=== PATIENT | male | born 1945 | race Caucasian/White ===

== ENCOUNTER 2020-01-01 10:40 | Emergency (ER) | payer MEDICARE ==
[~2020-01-01] VITALS: Ht 165.1 cm; Wt 63.5 kg
--- NOTE | 2020-01-01 10:40 | NUR ---
Patient BIBA BLS, transferred to bed 5. RN evaluating patient at bedside.
[2020-01-01 10:44] VITALS: BP 130/81
--- NOTE | 2020-01-01 10:49 | NUR ---
74 y/o male biba from home for suicidal ideation. Per ems pt was found by his son holding a knife to his chest stating he was going to kill himself. Pt states he was seen at [place] last week for SI. Denies SI/HI at this time. States he has been feeling increased depression the last few weeks. Pt awake and alert, calm and cooperative at this time. Pt placed in gown and all personal belongings removed from pt. VSS medhx: depression
--- NOTE | 2020-01-01 10:50 | NUR ---
Pt ambulated to restroom for collection of urine.
--- NOTE | 2020-01-01 10:56 | NUR ---
Dr. Steele is evaluating the patient at bedside.
--- NOTE | 2020-01-01 11:02 | NUR ---
Lab at bedside for blood draw
[2020-01-01 11:11] LABS: BASOPHILS # (AUTO) 0.1 K/uL (0.00-0.22); BASOPHILS % (AUTO) 1.2 % (0.0-2.0); EOSINOPHILS # (AUTO) 0.1 K/uL (0-0.4); EOSINOPHILS % (AUTO) 0.9 % (0.0-4.0); HEMATOCRIT 36.6 % (36-52); HEMOGLOBIN 12.6 g/dL (12.0-18.0); LYMPHOCYTES # (AUTO) 1.5 K/uL (2.0-11.5); MEAN CORPUSCULAR HEMOGLOBIN 34 pg (27-31); MEAN CORPUSCULAR HGB CONC 35 g/dL (33-37); MEAN CORPUSCULAR VOLUME 99.7 fL (80-94); MONOCYTES # (AUTO) 0.4 K/uL (0.8-1.0); MONOCYTES % (AUTO) 6.3 % (1.7-9.3); NEUTROPHILS # (AUTO) 4.9 K/uL (1.8-7.7); NEUTROPHILS % (AUTO) 70.6 % (42.2-75.2); PLATELET COUNT (AUTO) 248 K/uL (140-450); RED BLOOD CELL COUNT(AUTO) 3.67 MIL/uL (4.20-6.10); RED CELL DISTRIBUTION WIDTH 13.5 % (11.6-13.7)
--- NOTE | 2020-01-01 11:21 | NUR ---
Telepsychiatry consultation ordered as requested by Dr. Steele.
[2020-01-01 11:22] LABS: ALBUMIN 3.6 g/dL (3.4-5.0); ANION GAP 11.4 (8-16); ASPARTATE AMINOTRANSFERASE 20 U/L (15-37); CARBON DIOXIDE 26.1 mmol/L (21-32); CHLORIDE 103 mmol/L (98-107); GLUCOSE 134 mg/dL (74-106); POTASSIUM 3.5 mmol/L (3.5-5.1); SODIUM SERUM 137 mmol/L (136-145); TOTAL BILIRUBIN 0.8 mg/dL (0.0-1.0); UREA NITROGEN, BLOOD 15 mg/dL (7-18)
[2020-01-01 11:25] LABS: ACETAMINOPHEN < 0.5 ug/ml (10-30); SALICYLATE < 2.8 mg/dL (2.8-20.0)
--- NOTE | 2020-01-01 12:27 | NUR ---
Resting with eyes closed, visible rise and fall of the chest. x 2 side rails raised, bed locked and in lowest position. VSS, will continue to monitor
[2020-01-01 12:57] LABS: BARBITURATE, URINE NEGATIVE ng/ml (NEG <=200)
[2020-01-01 12:58] LABS: BENZODIAZEPINE, URINE POSITIVE ng/mL (NEG <=200); CANNABINOID, URINE NEGATIVE ng/mL (NEG <=50); COCAINE, URINE NEGATIVE ng/mL (NEG <=300); OPIATE, URINE POSITIVE ng/mL (NEG <=2000); PHENCYCLIDINE SCREEN,URINE POSITIVE ng/mL (NEG <=25)
--- NOTE | 2020-01-01 14:02 | NUR ---
Pt laying flat with eyes closed, arousable to voice. VSS, will continue to monitor
--- NOTE | 2020-01-01 14:40 | NUR ---
Covid swabs collected from pt and taken to lab
--- NOTE | 2020-01-01 15:24 | NUR ---
Dr Bush at bedside speaking with patient
--- NOTE | 2020-01-01 16:30 | NUR ---
Pt resting in bed positioned for comfort, no complaints at this time. x 2 side rails raised, bed locked and in lowest position. VSS
--- NOTE | 2020-01-01 17:45 | NUR ---
Pt sitting upright in bed eating dinner. VSS
--- NOTE | 2020-01-01 19:07 | NUR ---
Report given to MICHELLE Motley. Transfer of care at this time
--- NOTE | 2020-01-01 20:09 | NUR ---
PT APPEARS TO BE SLEEPING. VSS, R/R EQUAL, AND UNLABORED. SIDE RAIL X2, BED IN LOW POSITION, SUICIDE PRECAUTIONS IN PLACE. WILL CONTINUE TO MONITOR.
--- NOTE | 2020-01-01 20:59 | NUR ---
Packet faxed for placement S/W ER regarding insurance. S/W [place] and she will call back In meantime the following facilities were called [facility] s/w [place]-no beds available-on saturation [facility] s/w [place]- no beds available-they have patients in their ER
--- NOTE | 2020-01-01 21:38 | NUR ---
PT SITTING IN BED, RESTING QUIETLY. VSS, R/R EQUAL, AND UNLABORED. SUICIDE PRECAUTIONS IN PLACE. SIDE RAIL X2, WILL CONTINUE TO MONITOR.
--- NOTE | 2020-01-01 22:25 | NUR ---
SPOKE TO PT'S . SHE PROVIDED ALL OF PATIENT'S HOME MEDS. MED REQ COMPLETED.
--- NOTE | 2020-01-01 22:53 | NUR ---
SPOKE TO AMOL FROM [facility]. SHE REQUESTED INFORMATION ABOUT PT, AND FOR PT'S CHART, AND HOLD BE FAXED TO THE "BED FINDER" AT [phone]. MACIE [employer] FAXED REQUESTED DOCUMENTS TO FACILITY.
[2020-01-01] MEDS ORDERED: CARB1TAB37 PO (23:09)
[2020-01-01] MEDS ORDERED: NABU500T3 PO (23:09)
[2020-01-01] MEDS ORDERED: ATA25 PO (23:09)
[2020-01-01] MEDS ORDERED: LIP80 PO (23:09)
[2020-01-01] MEDS ORDERED: VENL150C1 PO (23:09)
[2020-01-01] MEDS ORDERED: TRAZ-343 PO (23:09)
[2020-01-01] MEDS ORDERED: MIRT15TA PO (23:09)
[2020-01-01] MEDS ORDERED: QUET25TA PO (23:09)
[2020-01-01] MEDS ORDERED: DONE10TA10 PO (23:09)
[2020-01-01] MEDS ORDERED: BUS5 PO (23:09)
[2020-01-01] MEDS ORDERED: MSCON15 PO (23:09)
[2020-01-01] MEDS ORDERED: GABA300C PO (23:09)
--- NOTE | 2020-01-01 23:33 | NUR ---
PT APPEARS TO BE SLEEPING IN BED. VSS, R/R EQUAL, AND UNLABORED. SUICIDE PRECAUTIONS IN PLACE. SIDE RAIL X2, BED IN LOW POSITION, WILL CONTINUE TO MONITOR.
--- NOTE | 2020-01-02 02:31 | NUR ---
PT LAYING QUIETLY IN BED. R/R EQUAL, AND UNLABORED. NO DISTRESS NOTED, OR VERBALIZED AT THIS TIME. VSS. SUICIDE PRECAUTIONS IN PLACE, SIDE RAIL X2, WILL CONTINUE TO MONITOR.
--- NOTE | 2020-01-02 03:09 | NUR ---
PT ASKING TO SPEAK TO . I EXPLAINED THAT HIS , LARRY IS PROBABLY SLEEPING RIGHT NOW BECAUSE IT'S 3 AM. PT STATED "OH OK, I'LL CALL HER IN A COUPLE HOURS, AFTER BREAKFAST." R/R EQUAL, AND UNLABORED. NO DISTRESS NOTED, OR VERBALIZED AT THIS TIME. WILL CONTINUE TO MONITOR.
--- NOTE | 2020-01-02 04:27 | NUR ---
PT RESTING QUIETLY IN BED. REQUESTED AND PROVIDED ADDITIONAL BLANKETS FOR WARMTH. VSS, R/R EQUAL, AND UNLABORED. SUICIDE PRECAUTIONS IN PLACE. SIDE RAIL X2, BED IN LOW POSITION, WILL CONTINUE TO MONITOR.
[2020-01-02 05:45] VITALS: BP 129/69
--- NOTE | 2020-01-02 05:45 | NUR ---
Patient to be transferred to [facility]. Is being transferred due to Placement. Receiving facility has accepting physician and available space. ER physician has signed transfer form. Patient or responsible republican has agreed to transfer and signed form. Patient belongings inventoried and will be sent with patient. Copy of nursing notes, lab reports, EKG, Physicians Orders and X-rays to be sent with patient. Report called to [facility] ER at receiving facility.
--- NOTE | 2020-01-02 05:53 | NUR ---
PT'S LARRY NOTIFIED OF PT'S DEPARTURE TO [facility]
== END 2020-01-02 05:53 | disposition short-term general hospital (02) ==
LOC: MED 10:40
DX: R45.851 Suicidal ideations (principal); F17.200 Nicotine dependence, unspecified, uncomplicated; F32.9 Major depressive disorder, single episode, unspecified; Z20.828 Contact with and (suspected) exposure to other viral communicable diseases
CPT/HCPCS: 36415; 80053; 80305; 85025; 87426; 93005; 99285; G0480; G0482; U0003; 99284; J7060